=== PATIENT | female | born 1995 | race Caucasian/White ===

== ENCOUNTER 2017-11-24 20:04 | Emergency (ER) | payer OTHER ==
[~2017-11-24 20:04] MED LIST: CEFU500T50 PO; CIPR-345 PO; DOXY50CA35 PO; HYDR-4309 PO; ONDA4TAB97 PO; PHEN200T32 PO; SULF-198 PO; TRAM-420 PO
--- NOTE | 2017-11-24 20:17 | ER Report ---
History and Physical Time Seen By MD: 20:16 Hx. of Stated Complaint: Pt reporting back pain that began this afternoon. No known injuries to back. Pt states there is slight burning when urinating. HPI/ROS CHIEF COMPLAINT: Back pain HISTORY OF PRESENT ILLNESS: 22-year-old female patient presents to emergency room with complaint of back pain. Patient states this been going on for the last few hours. She states it started hurting so afternoon without any injury. Patient states she is not taking any medication for this. She states she's had urinary tract infection the past and this feels very similar to that. She states she's not had any fevers, however she has felt chilled. She denies having any nausea, vomiting or diarrhea. States is nothing seems to make the pain worse. Allergies: Coded Allergies: No Known Drug Allergies (Unverified , 07/18/17) Home Meds Active Scripts Sulfamethoxazole/Trimet 800-160 Mg Tab (BACTRIM DS TABLET) 1 Each Tablet, 1 TAB PO Q12H, #13 TAB Prov:RISA BOWER 11/24/17 Discontinued Scripts Sulfamethoxazole/Trimet 800-160 Mg Tab (BACTRIM DS TABLET) 1 Each Tablet, 1 TAB PO Q12H, #14 TAB 0 Refills Prov:MOOK LAZCANO MD 07/18/17 Past Medical/Surgical History Patient has a past medical history of urinary reflux, frequent UTIs. Patient denies any surgical history. Reviewed Nurses Notes: Yes Hx Smoking: No Smoking Status: Never Smoker Exposure to Second Hand Smoke?: No Constitutional Vital Sign - Last 24 Hours 11/24/17 11/24/17 11/24/17 11/24/17 20:10 20:13 20:19 20:23 Temp 98.4 Pulse 74 72 Resp 16 B/P (MAP) 118/84 118/84 (95) 122/87 (99) Pulse Ox 97 99 O2 Delivery Room Air 11/24/17 20:30 B/P (MAP) 125/82 (96) Physical Exam General Appearance: The patient is alert, has no immediate need for airway protection and no current signs of toxicity. ENT: Tympanic membranes are pearly-camarena, auditory canals are patent, mucous membranes are moist. Respiratory: Chest is non tender, lungs are clear to auscultation. Cardiac: regular rate and rhythm Gastrointestinal: Abdomen is soft and non tender, no masses, bowel sounds normal. Musculoskeletal: Neck: Neck is supple and non tender. Back: Patient has no tenderness to her lumbar spine, patient had no CVA tenderness. Extremities have full range of motion and are non tender. Skin: No rashes or lesions. DIFFERENTIAL DIAGNOSIS: After history and physical exam differential diagnosis was considered for back pain including but not limited to muscular pain, herniated disc, spine fracture, intra-abdominal causes and urinary tract infection. Medical Decision Making Data Points Laboratory Hematology Test 11/24/17 20:19 Urine Color Yellow Urine Clarity Slightly-cloudy Urine pH 6.0 pH (4.8-9.5) Urine Specific [place] 1.017 Urine Protein 100 mg/dL (NEGATIVE) Urine Glucose (UA) Negative mg/dL (NEGATIVE) Urine Ketones Negative mg/dL (NEGATIVE) Urine Blood Moderate (NEGATIVE) Urine Nitrite Negative (NEGATIVE) Urine Bilirubin Negative (NEGATIVE) Urine Urobilinogen Negative mg/dL (0.2-1.9) Urine Leukocyte Esterase Large (NEGATIVE) Urine RBC 43 /HPF (0-2/HPF) Urine WBC 161 /HPF (0-5/HPF) Urine Squamous Epithelial Cells None /LPF (</=FEW) Urine Bacteria Few /HPF (NONE-FEW) Urine Mucus None /HPF (NONE-FEW) Chemistry Test 11/24/17 20:19 Urine Color Yellow Urine Clarity Slightly-cloudy Urine pH 6.0 pH (4.8-9.5) Urine Specific [place] 1.017 Urine Protein 100 mg/dL (NEGATIVE) Urine Glucose (UA) Negative mg/dL (NEGATIVE) Urine Ketones Negative mg/dL (NEGATIVE) Urine Blood Moderate (NEGATIVE) Urine Nitrite Negative (NEGATIVE) Urine Bilirubin Negative (NEGATIVE) Urine Urobilinogen Negative mg/dL (0.2-1.9) Urine Leukocyte Esterase Large (NEGATIVE) Urine RBC 43 /HPF (0-2/HPF) Urine WBC 161 /HPF (0-5/HPF) Urine Squamous Epithelial Cells None /LPF (</=FEW) Urine Bacteria Few /HPF (NONE-FEW) Urine Mucus None /HPF (NONE-FEW) Urinalysis Test 11/24/17 20:19 Urine Color Yellow Urine Clarity Slightly-cloudy Urine pH 6.0 pH (4.8-9.5) Urine Specific [place] 1.017 Urine Protein 100 mg/dL (NEGATIVE) Urine Glucose (UA) Negative mg/dL (NEGATIVE) Urine Ketones Negative mg/dL (NEGATIVE) Urine Blood Moderate (NEGATIVE) Urine Nitrite Negative (NEGATIVE) Urine Bilirubin Negative (NEGATIVE) Urine Urobilinogen Negative mg/dL (0.2-1.9) Urine Leukocyte Esterase Large (NEGATIVE) Urine RBC 43 /HPF (0-2/HPF) Urine WBC 161 /HPF (0-5/HPF) Urine Squamous Epithelial Cells None /LPF (</=FEW) Urine Bacteria Few /HPF (NONE-FEW) Urine Mucus None /HPF (NONE-FEW) ED Course/Re-evaluation ED Course Patient was admitted and examined, history and physical were obtained. Differential diagnoses were considered. On examination patient has no CVA tenderness, lungs and heart are clear. A urinalysis was obtained. Patient was positive for urinary tract infection with large right-sided esterase, 100+ white blood cells per high-power field. Discussed findings with patient. We will go ahead and treat her with antibiotics. Patient was given a dose of Bactrim here in the emergency room, prescription was sent into [facility]. Patient should follow-up with her primary care provider in one week to make sure the urinary tract infection has cleared. We will culture the urine here, if she has any need to change antibiotic to call her with those results. Patient verbalized understanding and agreement with plan. Decision to Disposition Date: November 24, 2017 Decision to Disposition Time: 20:39 Depart Departure Latest Vital Signs Vital Signs Date Time Temp Pulse Resp B/P (MAP) Pulse Ox O2 Delivery O2 Flow Rate FiO2 11/24/17 20:30 125/82 (96) 11/24/17 20:19 72 99 11/24/17 20:10 98.4 16 Room Air Impression: Primary Impression: UTI (urinary tract infection) Condition: Improved Disposition: HOME OR SELF-CARE New Scripts Sulfamethoxazole/Trimet 800-160 Mg Tab (BACTRIM DS TABLET) 1 Each Tablet 1 TAB PO Q12H, #13 TAB Prov: RISA BOWER 11/24/17 Patient Instructions: Urinary Tract Infection in Women (ED) Additional Instructions: Increase fluid intake. Get plenty of rest. We are culturing the bacteria in your urine and will call if we need to change antibiotics. Follow up with your primary care provider in the next week for a repeat urinalysis. Return to the ER if condition worsens. Problem Qualifiers Primary Impression: UTI (urinary tract infection) Urinary tract infection type: acute cystitis Hematuria presence: with hematuria Qualified Codes: N30.01 - Acute cystitis with hematuria RISA BOWER November 24, 2017 20:17
[2017-11-24 20:30] VITALS: BP 125/82
[2017-11-24] MEDS ORDERED: SULF-198 PO (20:38)
[2017-11-24] MEDS ORDERED: TRIMETH/SULFA DS 160-800MG TAB PO ONE (20:40)
== END 2017-11-24 20:51 | disposition home or self-care (01) ==
LOC: ER 20:16
DX: N30.01 Acute cystitis with hematuria (principal); B96.20 Unspecified Escherichia coli [E. coli] as the cause of diseases classified elsewhere
CPT/HCPCS: 81001; 87077; 87088; 87186; 99283

== ENCOUNTER 2018-10-11 18:30 | Emergency (ER) | payer BC, OTHER ==
[~2018-10-11 18:30] MED LIST changes: -HYDR-4309 PO; +HYDR-653 PO
--- NOTE | 2018-10-11 18:46 | ER Report ---
History and Physical Time Seen By MD: 18:39 Hx. of Stated Complaint: ABD PAIN HPI/ROS CHIEF COMPLAINT: Abdominal pain HISTORY OF PRESENT ILLNESS: This is a 22-year-old female who presents to the emergency department for abdominal pain. Patient states that last night she noticed a slight change in the odor of her urine, she started taking Azo which provided no relief, later in the evening as she is getting her for bed she developed some lower abdominal pain, progressively getting worse through the night, now she states the pain is in her right flank as well as the right lower quadrant. Some nausea no vomiting. Last menstrual period one week ago. No chest pain or shortness of breath. No diarrhea. Denies history of STD, no unusual vaginal discharge or vaginal odor. REVIEW OF SYSTEMS: Constitutional: As above. Eyes: No discharge. ENT: No sore throat. Cardiovascular: No chest pain, no palpitations. Respiratory: No cough, no shortness of breath. Gastrointestinal: As above. Genitourinary: As above. Musculoskeletal: No back pain. Skin: No rashes. Neurological: No headache. Allergies: Coded Allergies: No Known Drug Allergies (Unverified , 10/11/18) Home Meds Active Scripts Ondansetron Hcl (ZOFRAN) 4 Mg Tablet, 4 MG PO Q4-6H PRN for prn, #20 TAB Prov:GENA VICTOR [facility]- 10/11/18 Sulfamethoxazole/Trimet 800-160 Mg Tab (BACTRIM DS TABLET) 1 Each Tablet, 1 TAB PO Q12H for 14 Days, #27 TAB 0 Refills Prov:GENA VICTOR [facility]- 10/11/18 Discontinued Scripts Sulfamethoxazole/Trimet 800-160 Mg Tab (BACTRIM DS TABLET) 1 Each Tablet, 1 TAB PO Q12H, #13 TAB Prov:RISA BOWER [facility] 11/24/17 Past Medical/Surgical History The patient has a past medical and surgical history of urinary reflux, urinary tract infections, wears glasses. Reviewed Nurses Notes: Yes Hx Smoking: No Smoking Status: Never Smoker Exposure to Second Hand Smoke?: No Constitutional Vital Sign - Last 24 Hours 10/11/18 10/11/18 10/11/18 10/11/18 18:36 18:36 19:00 19:42 Temp 100.6 Pulse 110 104 Resp 16 B/P (MAP) 143/99 143/99 (114) 132/106 (115) 136/85 (102) Pulse Ox 97 99 O2 Delivery Room Air Physical Exam General Appearance: The patient is alert, has no immediate need for airway protection and no signs of toxicity, appears uncomfortable. Eyes: Pupils equal and round no pallor or injection. ENT, Mouth: Mucous membranes are moist. Respiratory: There are no retractions, lungs are clear to auscultation. Cardiovascular: Regular rate and rhythm, no murmurs, clicks or rubs. Gastrointestinal: Abdomen is soft, tenderness to the right lower quadrant into the lucero-umbilical area. No rebound tenderness. Hypoactive bowel sounds. No masses or abdominal bruits. Neurological: Alert and oriented 4. Moving all extremities. Following. No focal neuro deficits. Skin: Warm and dry, no rashes. Musculoskeletal: Neck is supple non tender. Extremities are nontender, nonswollen and have full range of motion. DIFFERENTIAL DIAGNOSIS: After history and physical exam differential diagnosis was considered for abdominal pain in a female including but not limited to ovarian cyst, pelvic inflammatory disease, ovarian torsion, urinary tract infection, and appendicitis. Medical Decision Making Data Points Result Diagram: 10/11/18 1840 10/11/18 1840 Laboratory Hematology Test 10/11/18 18:35 10/11/18 18:40 Urine Color Luana Urine Clarity Cloudy Urine pH 7.0 pH (4.8-9.5) Urine Specific [place] 1.012 Urine Protein 30 mg/dL (NEGATIVE) Urine Glucose (UA) Negative mg/dL (NEGATIVE) Urine Ketones Negative mg/dL (NEGATIVE) Urine Blood Moderate (NEGATIVE) Urine Nitrite Positive (NEGATIVE) Urine Bilirubin Negative (NEGATIVE) Urine Urobilinogen 2.0 mg/dL (0.2-1.9) Urine Leukocyte Esterase Large (NEGATIVE) Urine RBC 8 /HPF (0-2/HPF) Urine WBC 203 /HPF (0-5/HPF) Urine Squamous Epithelial Cells Many /LPF (</=FEW) Urine Bacteria Few /HPF (NONE-FEW) Urine Mucus Few /HPF (NONE-FEW) Urine HCG, Qualitative Negative (NEGATIVE) Red Blood Count 5.08 M/uL (4.17-5.56) Mean Corpuscular Volume 80.5 fL (80.0-96.0) Mean Corpuscular Hemoglobin 26.2 pg (26.0-33.0) Mean Corpuscular Hemoglobin Concent 32.5 g/dL (32.0-36.0) Red Cell Distribution Width 15.4 % (11.5-14.5) Mean Platelet Volume 8.9 fL (7.2-11.1) Neutrophils (%) (Auto) 90.2 % (39.4-72.5) Lymphocytes (%) (Auto) 7.6 % (17.6-49.6) Monocytes (%) (Auto) 1.5 % (4.1-12.4) Eosinophils (%) (Auto) 0.4 % (0.4-6.7) Basophils (%) (Auto) 0.3 % (0.3-1.4) Nucleated RBC Relative Count (auto) 0.0 /100WBC Neutrophils # (Auto) 9.4 K/uL (2.0-7.4) Lymphocytes # (Auto) 0.8 K/uL (1.3-3.6) Monocytes # (Auto) 0.2 K/uL (0.3-1.0) Eosinophils # (Auto) 0.0 K/uL (0.0-0.5) Basophils # (Auto) 0.0 K/uL (0.0-0.1) Nucleated RBC Absolute Count (auto) 0.00 K/uL Sodium Level 134 mmol/L (137-145) Potassium Level 4.2 mmol/L (3.5-5.0) Chloride Level 106 mmol/L (98-107) Carbon Dioxide Level 20 mmol/L (22-31) Blood Urea Nitrogen 15 mg/dl (7-18) Creatinine 0.80 mg/dl (0.52-1.04) Glomerular Filtration Rate Calc > 60.0 Random Glucose 100 mg/dl (75-110) Calcium Level 9.7 mg/dl (8.4-10.2) Total Bilirubin 0.9 mg/dl (0.2-1.3) Aspartate Amino Transf (AST/SGOT) 32 U/L (0-35) Alanine Aminotransferase (ALT/SGPT) 18 U/L (0-56) Alkaline Phosphatase 53 U/L (0-126) Total Protein 8.5 g/dl (6.3-8.2) Albumin 4.6 g/dl (3.5-5.0) Lipase 77 U/L (23-300) Chemistry Test 10/11/18 18:35 10/11/18 18:40 Urine Color Luana Urine Clarity Cloudy Urine pH 7.0 pH (4.8-9.5) Urine Specific [place] 1.012 Urine Protein 30 mg/dL (NEGATIVE) Urine Glucose (UA) Negative mg/dL (NEGATIVE) Urine Ketones Negative mg/dL (NEGATIVE) Urine Blood Moderate (NEGATIVE) Urine Nitrite Positive (NEGATIVE) Urine Bilirubin Negative (NEGATIVE) Urine Urobilinogen 2.0 mg/dL (0.2-1.9) Urine Leukocyte Esterase Large (NEGATIVE) Urine RBC 8 /HPF (0-2/HPF) Urine WBC 203 /HPF (0-5/HPF) Urine Squamous Epithelial Cells Many /LPF (</=FEW) Urine Bacteria Few /HPF (NONE-FEW) Urine Mucus Few /HPF (NONE-FEW) Urine HCG, Qualitative Negative (NEGATIVE) White Blood Count 10.4 k/uL (4.5-11.0) Red Blood Count 5.08 M/uL (4.17-5.56) Hemoglobin 13.3 g/dL (12.0-16.0) Hematocrit 40.9 % (34.0-47.0) Mean Corpuscular Volume 80.5 fL (80.0-96.0) Mean Corpuscular Hemoglobin 26.2 pg (26.0-33.0) Mean Corpuscular Hemoglobin Concent 32.5 g/dL (32.0-36.0) Red Cell Distribution Width 15.4 % (11.5-14.5) Platelet Count 298 K/uL (150-450) Mean Platelet Volume 8.9 fL (7.2-11.1) Neutrophils (%) (Auto) 90.2 % (39.4-72.5) Lymphocytes (%) (Auto) 7.6 % (17.6-49.6) Monocytes (%) (Auto) 1.5 % (4.1-12.4) Eosinophils (%) (Auto) 0.4 % (0.4-6.7) Basophils (%) (Auto) 0.3 % (0.3-1.4) Nucleated RBC Relative Count (auto) 0.0 /100WBC Neutrophils # (Auto) 9.4 K/uL (2.0-7.4) Lymphocytes # (Auto) 0.8 K/uL (1.3-3.6) Monocytes # (Auto) 0.2 K/uL (0.3-1.0) Eosinophils # (Auto) 0.0 K/uL (0.0-0.5) Basophils # (Auto) 0.0 K/uL (0.0-0.1) Nucleated RBC Absolute Count (auto) 0.00 K/uL Glomerular Filtration Rate Calc > 60.0 Calcium Level 9.7 mg/dl (8.4-10.2) Total Bilirubin 0.9 mg/dl (0.2-1.3) Aspartate Amino Transf (AST/SGOT) 32 U/L (0-35) Alanine Aminotransferase (ALT/SGPT) 18 U/L (0-56) Alkaline Phosphatase 53 U/L (0-126) Total Protein 8.5 g/dl (6.3-8.2) Albumin 4.6 g/dl (3.5-5.0) Lipase 77 U/L (23-300) Urinalysis Test 10/11/18 18:35 Urine Color Luana Urine Clarity Cloudy Urine pH 7.0 pH (4.8-9.5) Urine Specific [place] 1.012 Urine Protein 30 mg/dL (NEGATIVE) Urine Glucose (UA) Negative mg/dL (NEGATIVE) Urine Ketones Negative mg/dL (NEGATIVE) Urine Blood Moderate (NEGATIVE) Urine Nitrite Positive (NEGATIVE) Urine Bilirubin Negative (NEGATIVE) Urine Urobilinogen 2.0 mg/dL (0.2-1.9) Urine Leukocyte Esterase Large (NEGATIVE) Urine RBC 8 /HPF (0-2/HPF) Urine WBC 203 /HPF (0-5/HPF) Urine Squamous Epithelial Cells Many /LPF (</=FEW) Urine Bacteria Few /HPF (NONE-FEW) Urine Mucus Few /HPF (NONE-FEW) Urine HCG, Qualitative Negative (NEGATIVE) EKG/Imaging Imaging Location: [facility] [place] Patient: Fern Miner : 1995 Visit/Account:[id number] Date of Sevice: 10/11/2018 EXAMINATION: CT abdomen and pelvis with contrast COMPARISON: None. HISTORY: Abdominal pain for 2 days. PROCEDURE: Multiplanar contrast enhanced CT of the abdomen and pelvis with 75 mL intravenous Isovue 370. One of the following dose optimization techniques was utilized in the performance of this exam: Automated exposure control; adjustment of the mA and/or kV according to the patient's size; or use of an iterative reconstruction technique. Specific details can be referenced in the facility's radiology CT exam operational policy. FINDINGS: Visualized thorax: Negative. Liver: Negative. Gallbladder and biliary system: Negative Spleen: Negative. Pancreas: Negative. Adrenal glands: Negative. Kidneys and bladder: Right kidney heterogeneous regions of decreased parenchymal enhancement. Dominant regions include a 2.7 x 1.8 cm region in the posterior right upper pole and a 2.6 x 1.6 cm region in the posterior midpole. There is mild perinephric stranding and questionable trace perinephric fluid adjacent to the site of inflammation but no measurable fluid collection is identified. Mild right renal pelvis and ureteral inflammation is present as well. No radiopaque urolithiasis is identified. There is a questionable small region of decreased enhancement in the left kidney upper pole as well although there is mild focal cortical thinning at this site suggestive of infarct. No other definite evidence of parenchymal inflammation is identified on the left. Urinary bladder is within normal limits. Vessels: Within normal limits. Bowel and mesentery: Stomach, small bowel, and appendix are within normal limits. Small amount stool in the colon. No bowel or mesenteric inflammation. Pelvic organs: Negative. Lymph nodes: No adenopathy. Free air/free fluid: Trace simple appearing free fluid in the dependent pelvis is nonspecific but favored to be physiologic or reactive. No organized fluid collection. No pneumoperitoneum. Abdominal wall and osseous structures: Negative. IMPRESSION: Right sided urinary tract infection and pyelonephritis. Report Dictated By: Eddi Edmonds MD at 10/11/2018 7:53 PM Report E-Signed By: Eddi Edmonds MD at 10/11/2018 8:06 PM [id number] ED Course/Re-evaluation Clinical Indication for ER IV: Hydration, IV Access ED Course The patient was admitted to room. A history and physical obtained. Differential diagnoses were considered. IV was started. A CBC, CMP and UA were collected. A 1 L normal saline bolus was given. 4 mg IV Zofran, 4 mg IV morphine.CBC with no white count, with a karis shift. chemistry unremarkable. UA showing moderate blood, nitrites, urobili, leuk esterase, with 203 urine WBC's, Negative HCG. Urine sent for culture. as the patient had RLQ pain, with fever, CT was obtained, negative for appy, showing bladder infection with risht sided pyelonephritis. Results reviewed with patient, 1st dose of Bactrim given in the ED as well as a take home pack of zofran. Rx for bactrim and zofran sent to the patients pharmacy. She will follow up with her PCP tomorrow, she is in agreement with this plan of care. Decision to Disposition Date: Oct 11, 2018 Decision to Disposition Time: 20:21 Depart Departure Latest Vital Signs Vital Signs Date Time Temp Pulse Resp B/P (MAP) Pulse Ox O2 Delivery O2 Flow Rate FiO2 10/11/18 19:42 136/85 (102) 10/11/18 19:00 104 99 10/11/18 18:36 100.6 16 Room Air Impression: Primary Impression: Pyelonephritis Condition: Improved Disposition: HOME OR SELF-CARE New Scripts Ondansetron Hcl (ZOFRAN) 4 Mg Tablet 4 MG PO Q4-6H PRN for prn, #20 TAB Prov: GENA VICTOR 10/11/18 Sulfamethoxazole/Trimet 800-160 Mg Tab (BACTRIM DS TABLET) 1 Each Tablet 1 TAB PO Q12H for 14 Days, #27 TAB 0 Refills Prov: GENA VICTORP- 10/11/18 Patient Instructions: Kidney Infection (ED) Additional Instructions: You have Pyelonephritis. We will treat you with Bactrim for 14 days, first dose tonight, the rest sent to [facility] pharmacy. Take Zofran as needed for nausea or vomiting. I did send your urine for culture, if anything concerning noted, we will contact you. Please keep your appointment with your PCP tomorrow for follow up. Drink plenty of fluids. Get plenty of rest. Take Ibuprofen or Tylenol as needed for pain. Return to the ED for any other concerns or worsening symptoms. GENA VICTOR [employer] Oct 11, 2018 18:46
[2018-10-11] MEDS ORDERED: NS(*) 0.9% 1000 ML BAG 1,000 ML IV ONE (18:52)
[2018-10-11] MEDS ORDERED: ONDANSETRON 4 MG/2 ML VIAL IVP ONE (18:55)
[2018-10-11] MEDS ORDERED: MORPHINE 4 MG/ML SDV IVP ONE (18:55)
[2018-10-11 19:02] LABS: PLATELET COUNT, AUTOMATED 298 K/uL (150-450)
[2018-10-11] MEDS ORDERED: IOPAMIDOL 76% 150 ML INFUS BTL 150 ML ONE (19:07)
--- NOTE | 2018-10-11 20:10 | RADIOLOGY IMAGING REPORT ---
FACILITY: [facility] [place] PATIENT NAME: Fern Miner : 1995 MR: [id number] V: [id number] EXAM DATE: ORDERING PHYSICIAN: GENA VICTOR TECHNOLOGIST: Location: [facility] [place] Patient: Fern Miner : 1995 Visit/Account:[id number] Date of Sevice: 10/11/2018 EXAMINATION: CT abdomen and pelvis with contrast COMPARISON: None. HISTORY: Abdominal pain for 2 days. PROCEDURE: Multiplanar contrast enhanced CT of the abdomen and pelvis with 75 mL intravenous Isovue 3 70. One of the following dose optimization techniques was utilized in the performance of this exam: A utomated exposure control; adjustment of the mA and/or kV according to the patient's size; or use of an iterative reconstruction technique. Specific details can be referenced in the facility's radiolo gy CT exam operational policy. FINDINGS: Visualized thorax: Negative. Liver: Negative. Gallbladder and biliary system: Negative Spleen: Negative. Pancreas: Negative. Adrenal glands: Negative. Kidneys and bladder: Right kidney heterogeneous regions of decreased parenchymal enhancement. Dominan t regions include a 2.7 x 1.8 cm region in the posterior right upper pole and a 2.6 x 1.6 cm region i n the posterior midpole. There is mild perinephric stranding and questionable trace perinephric fluid adjacent to the site of inflammation but no measurable fluid collection is identified. Mild right re nal pelvis and ureteral inflammation is present as well. No radiopaque urolithiasis is identified. Th ere is a questionable small region of decreased enhancement in the left kidney upper pole as well alt lindsay there is mild focal cortical thinning at this site suggestive of infarct. No other definite saman dence of parenchymal inflammation is identified on the left. Urinary bladder is within normal limits. Vessels: Within normal limits. Bowel and mesentery: Stomach, small bowel, and appendix are within normal limits. Small amount stool in the colon. No bowel or mesenteric inflammation. Pelvic organs: Negative. Lymph nodes: No adenopathy. Free air/free fluid: Trace simple appearing free fluid in the dependent pelvis is nonspecific but fav ored to be physiologic or reactive. No organized fluid collection. No pneumoperitoneum. Abdominal wall and osseous structures: Negative. IMPRESSION: Right sided urinary tract infection and pyelonephritis. Report Dictated By: Eddi Edmonds MD at 10/11/2018 7:53 PM Report E-Signed By: Eddi Edmonds MD at 10/11/2018 8:06 PM [id number]
[2018-10-11] MEDS ORDERED: ONDANSETRON 4 MG ODT TH SL ONE (20:20)
[2018-10-11] MEDS ORDERED: TRIMETH/SULFA DS 160-800MG TAB PO ONE (20:20)
[2018-10-11] MEDS ORDERED: ONDA4TAB97 PO (20:23)
[2018-10-11] MEDS ORDERED: SULF-198 PO (20:23)
[2018-10-11] MEDS ORDERED: ONDANSETRON 4 MG ODT TH ONE (20:27)
[2018-10-11] MEDS ORDERED: TRIMETH/SULFA DS 160-800MG TAB ONE (20:27)
[2018-10-11 20:30] VITALS: BP 124/72
== END 2018-10-11 20:44 | disposition home or self-care (01) ==
LOC: ER 18:53
DX: N10 Acute pyelonephritis (principal)
CPT/HCPCS: 81001; 81025; 83690; 85025; 87088; 96361; 96374; 96375; 99284; J2270; J2405; J7030; Q9967; S0119; 74177; 82040; 82247; 82310; 82374; 82435; 82565; 82947; 84075; 84132; 84155; 84295; 84450; 84460; 84520